=== PATIENT | male | born 1940 | race Asian ===

== ENCOUNTER 2017-04-01 12:36 | Outpatient (CLI) | payer MEDICARE, MEDICAID ==
--- NOTE | 2017-04-01 16:13 | Diagnostic Imaging Report ---
Indication: COUGH Technique: 2 views of the chest Comparison: none. Findings: Very questionable 2 cm opacity left lung base, just lateral to the heart border. The remainder the lungs and pleural spaces are clear. The heart size is normal.. Impression: Very questionable left basilar opacity, mass versus artifact of overlapping shadows. Consider CT for better characterization No acute process otherwise Findings discussed by phone with Dr. Rios at the time of interpretation
== END 2017-04-01 14:36 | disposition home or self-care (01) ==
LOC: RAD 12:36 → EDBD 12:36 → RAD 14:36
DX: R05 Cough (principal)
CPT/HCPCS: 71020